=== PATIENT | female | born 1995 | race Caucasian/White ===

== ENCOUNTER 2018-10-28 05:18 | Inpatient (IN) | payer OTHER ==
[2018-10-27 12:22] LABS: RPR Titer ND
[2018-10-27 12:24] LABS: Urine Appearance CLOUDY; Urine Bilirubin NEGATIVE (NEG); Urine Blood NEGATIVE (NEG); Urine Color YELLOW; Urine Glucose NEGATIVE (NEG); Urine Protein NEGATIVE (NEG); Urine pH 7.5 (5.0-7.0)
[2018-10-27 12:32] LABS: Absolute Monocytes 0.9 K/uL (0.1-1.3); Absolute Neutrophil 6.9 K/uL (1.8-8.0); Basophils % 0.3 % (0-1.3); Eosinophils % 0.6 % (0-4.4); Hematocrit 40.8 % (36.0-45.0); Lymphocytes % 33.7 % (15.3-44.8); MPV 9.2 fL (7.6-11.3); Monocytes % 7.2 % (3.3-12.3); RBC Red Blood Cell Count 4.74 M/uL (3.86-4.86); Urine Bacteria 20-50 /HPF (<20); Urine Culture Reflex Order REFLEXED; Urine Mucus 2+ /HPF (NONE SEEN); Urine RBC <5 /HPF (NONE SEEN)
[2018-10-27 20:48] LABS: RPR (Rapid Plasma Reagin) NON-REACT (NON-REACT)
[~2018-10-28 05:18] MED LIST: CEFAZOLIN/SWI 2gm 2 GM/20 ML SYR IVP SCH
[2018-10-28] MEDS ORDERED: Ringers Lactate 1,000 ML IV PRN (05:49)
[2018-10-28] MEDS ORDERED: METHYLERGONOVINE 0.2MG/ML AMP IM ONE (05:52)
[2018-10-28] MEDS ORDERED: CARBOPROST TROME 250 MCG/ML IM ONE (05:52)
[2018-10-28] MEDS ORDERED: Ringers Lactate 1,000 ML IV SCH ×2 (06:00→09:00)
[2018-10-28] MEDS ORDERED: FAMOTIDINE 20 MG/2 ML VIAL IV ONE (06:30)
[2018-10-28] MEDS ORDERED: METOCLOPRAMIDE 10 MG/2mL INJ IV ONE (06:30)
[2018-10-28] MEDS ORDERED: NA CIT/CITRIC AC 30 ML ORAL UDC PO ONE (06:30)
[2018-10-28 06:53] VITALS: BMI 28.7
[2018-10-28] MEDS ORDERED: FENTANYL CITR 250 MCG/5 ML ONE (07:18)
[2018-10-28] MEDS ORDERED: BUPIVACAINE 0.75% (PF) 2 ML SP ONE (07:22)
[2018-10-28] MEDS ORDERED: EPHEDRINE SULF 50 MG/ML VIAL ONE (07:22)
[2018-10-28] MEDS ORDERED: MORPHINE SULFATE/PF 1 MG/ML (10 ML AMP) ONE (07:22)
[2018-10-28] MEDS ORDERED: OXYTOCIN 10 UNIT/ML ML IV ONE ×2 (07:22→08:23)
[2018-10-28] MEDS ORDERED: LIDOCAINE 1% MPF 5 ML VIAL ONE (07:25)
[2018-10-28] MEDS ORDERED: MIDAZOLAM HCL 2 MG/2 ML INJ ONE (08:04)
[2018-10-28] MEDS ORDERED: METHYLERGONOVINE 0.2 MG TAB PO PRN (08:36)
[2018-10-28] MEDS ORDERED: CARBOPROST TROME 250 MCG/ML IM PRN (08:36)
[2018-10-28] MEDS ORDERED: ONDANSETRON 4 MG (ODT) TAB PO PRN (08:36)
[2018-10-28] MEDS ORDERED: Rho(D) IG (HUMAN) 300 MCG SYR IM PRN (08:36)
[2018-10-28] MEDS ORDERED: METHYLERGONOVINE 0.2MG/ML AMP IM PRN (08:36)
--- NOTE | 2018-10-28 08:39 | P.BOP ---
Preoperative diagnosis: 39 wk , prior Postoperative diagnosis: same, viable male infant Primary procedure: Furnace Repair Mechanic: Marino Rosa Estimated blood loss: 1000 Specimen: placenta Anesthesia: Spinal Complications: None Drain(s): Urinary catheter Transferred to: Other (278) Condition: Good
[2018-10-28] MEDS ORDERED: DIPHENHYDRAMINE 50 MG/ML VIAL IV PRN (08:52)
[2018-10-28] MEDS ORDERED: NALOXONE 0.4 MG/ML VIAL IV PRN (08:53)
[2018-10-28] MEDS ORDERED: PROMETHAZINE 25 MG/ML VIAL IV PRN (08:53)
[2018-10-28] MEDS: OXYTOCIN/LR 20 UNIT/1,000 ML BAG IV SCH ×2 (14:55→22:55)
--- NOTE | 2018-10-28 16:14 | P.PN ---
Date of Service: 10/28/18 S-No complaints O-vs stable, bandage dry, urine clear, abdomen soft A-Satisfactory P-planned care discussed.
[2018-10-28] MEDS: KETOROLAC 30 MG/ML INJ IV PRN (20:20)
--- NOTE | 2018-10-29 01:41 | OP ---
Surgeon: Karl Bowie MD Anesthesiologist: Leonora Tavera CRNA and Tam Carpio MD. Preoperative Diagnoses: 39+ week , prior section with single-layer closure. Procedure: Spinal block anesthesia, repeat section, delivery of viable male infant. Postoperative Diagnosis: 39+ week , prior section with single-layer closure. Description Of Procedure: After satisfactory level of spinal block anesthesia was obtained, the eric ent was prepped and draped in usual fashion for abdominal surgery in a lithotomy position with a Fole y catheter in place. A Pfannenstiel skin incision was made and carried down to the fascia. Fascia i ncised with a combination of sharp and blunt dissection. This was from the underlying rect us muscles. These were divided in the midline. Peritoneum entered. Vesicouterine peritoneum incise d. Bladder flap developed. A low-transverse uterine incision was made. A 7 pound 13 ounce male inf ant, 9 and 9 was delivered. Cord was clamped, cut, and the placed in a warmer. Cord bl ood was obtained. The placenta was manually removed. The uterus was then exteriorized. The cervix was dilated from above with a ring clamp, which was passed from the operative field. The uterus was closed in two layers utilizing 0 Vicryl suture in a running nonlocking fashion with the second layer used to imbricate the first layer. Vesicouterine peritoneum was reapproximated with a running suture of 3-0 Vicryl. The uterus was returned to the peritoneal cavity which was cleaned of amniotic fluid , debris, and blood clot. The rectus muscles were approximated in the midline with simple sutures of 0 Vicryl. The fascia was closed with running sutures of #1 Vicryl from either margin to the middle. Subcutaneous sutures of 3-0 Vicryl, subdermal suture of 3-0 Vicryl, and a subcuticular suture of 4- 0 Monocryl were used to approximate the skin edges. The patient was taken to recovery room in satisf actory condition with Hidalgo catheter in place. Sponge and needle counts were correct x2. She receiv ed 2 g of Ancef for antibiotic prophylaxis. Global Implementation Manager Surgeon: Dr. Rosa. JAUN/REMAL Voice ID: [id number] Report ID: [id number]
[2018-10-29] MEDS: KETOROLAC 30 MG/ML INJ IV PRN (04:25)
[2018-10-29 04:50] LABS: Absolute Lymphocytes (CBC) 4.1 K/uL (0.7-4.9); Absolute Monocytes 1.1 K/uL (0.1-1.3); Absolute Neutrophil 6.4 K/uL (1.8-8.0); Basophils % 0.2 % (0-1.3); Lymphocytes % 34.7 % (15.3-44.8); Monocytes % 9.7 % (3.3-12.3); RBC Red Blood Cell Count 3.46 M/uL (3.86-4.86)
[2018-10-29] MEDS: OXYTOCIN/LR 20 UNIT/1,000 ML BAG IV SCH (06:55)
--- NOTE | 2018-10-29 07:10 | P.PN ---
S-No complaints O-Afeb, vs stable, bandage dry, abdomen soft, 08/06 post op h/h A-Satisfactory, some pp hemorrhage P-Ambulate, disconnect IV, briseno
[2018-10-29] MEDS ORDERED: IBUPROFEN 200 MG TAB PO PRN (13:04)
[2018-10-30] MEDS: Oxycodone HCl/Acetaminophen 1 TAB TAB PO PRN ×2 (00:21→08:55)
[2018-10-30 12:08] VITALS: BP 108/55; TEMP 98.5
--- NOTE | 2018-10-31 04:14 | DS ---
Date of Discharge: 10/30/2018 Final Hospital Discharge Diagnoses: 39+ week , delivery by section. Complications: Postoperative blood loss anemia. Procedures: Spinal block anesthesia, repeat section, delivery of viable male infant. Hospital Course: The patient is a 23-year-old, female, 2, para 1-0-0-1, at term wi th prior section with single-layer locked closure. Because of this, she underwent repeat ce sarean section and delivered a 7 pound 13 ounce male infant with spinal block anesthesia. Her postop erative course was complicated with mild atony, treated with methargen. She had an admission hemoglo bin and hematocrit of 13.9 and 40.8; dismissal 10.0 and 30.0. She is Rh negative blood type. Did re ceive RhoGAM. Was dismissed to be seen back in my office in 1 week to continue taking her i sapphire and vitamins with a prescription for Tylenol No. 3, #15, for pain relief and with the usual post vaginal delivery activity restrictions. JAUN/DARBY Voice ID: [id number] Report ID: [id number]
[2018-10-31 04:53] LABS: HBsAG Nonreactive (Nonreactive)
== END 2018-10-30 09:15 | disposition home or self-care (01) | DRG 787 ==
LOC: 2ND-WC 05:18
PROVIDERS: ADMIT Specialist; ATTEND Specialist
PROC: 3E0334Z Introduction of Serum, Toxoid and Vaccine into Peripheral Vein, Percutaneous Approach (ICD-10-PCS; 2018-10-28)
PROC: 10D00Z1 Extraction of Products of Conception, Low, Open Approach (ICD-10-PCS; principal; 2018-10-28 07:30)
DX: O34.211 Maternal care for low transverse scar from previous cesarean delivery (principal); D62 Acute posthemorrhagic anemia; O36.0930 Maternal care for other rhesus isoimmunization, third trimester, not applicable or unspecified; O99.02 Anemia complicating childbirth; Z3A.39 39 weeks gestation of pregnancy; Z37.0 Single live birth
CPT/HCPCS: 36415; 81001; 85025; 85461; 86592; 86850; 86870; 86900; 86901; 87086; 87088; 87340; 88307; J2210; J2250; J2550; J2590; J2765; J2790; J3010